=== PATIENT | male | born 1950 | race Caucasian/White ===

== ENCOUNTER 2023-07-09 13:59 | Inpatient (IN) | payer OTHER ==
[~2023-07-09 13:59] MED LIST: Iopamidol 300 61% 100 ML VIAL FS ONE
[2023-07-09 14:54] LABS: #Basophils 0.1 10x3/uL (0.0-0.2); #Eosinphils 0.3 10x3/uL (0.0-0.5); #Monocytes 0.8 10x3/uL (0.0-1.1); #Neutrophils 10.7 10x3/uL (1.5-8.4); %Basophils 0.5 % (0.0-2.0); %Eosinophils 2.4 % (0.0-6.0); %Lymphocytes 8.7 % (18.0-47.0); %Monocytes 6.1 % (0.0-10.0); %Neutrophils 81.5 % (40.0-75.0); Hematocrit 36.5 % (38.8-50.0); Hemoglobin 11.3 g/dL (13.5-17.5); Mean Corpuscular Volume 90.6 fl (81.2-95.1); Mean Platelet Volume 9.8 fl (7.4-10.4); Platelet Count 366 10x3/uL (150-450); RBC Distribution Width 15.4 % (11.5-14.5); Red Blood Cell (RBC) Count 4.03 10x6/uL (4.32-5.72); White Blood Cell (WBC) Count 13.1 10x3/uL (3.5-10.5)
[2023-07-09 15:13] LABS: ALT (SGPT) 17 U/L (8-55); AST (SGOT) 15 U/L (5-34); Albumin 3.1 g/dL (3.4-4.8); Alkaline Phosphatase 69 U/L (40-110); Anion Gap 14 mmol/L (10-20); BUN (Urea Nitrogen) 45 mg/dL (8.4-25.7); Bilirubin, Total 0.2 mg/dL (0.2-1.2); Calc. Creatinine Clearance 0 mL/min (70-130); Calcium 8.9 mg/dL (7.8-10.44); Carbon Dioxide 27 mmol/L (23-31); Chloride 104 mmol/L (98-107); Estimated GFR 86; Globulin 3.1 g/dL (2.4-3.5); Glucose 109 mg/dL (83-110); Lipase 37 U/L (8-78); Potassium 5.2 mmol/L (3.5-5.1); Protein, Total 6.2 g/dL (5.8-8.1); Sodium 140 mmol/L (136-145)
[2023-07-09 15:19] LABS: Troponin I Less than 0.010 ng/mL (< 0.028)
[2023-07-09 15:25] LABS: SARS-CoV-2 NAA Rapid Test Not Detected (NotDetected)
[2023-07-09 15:43] LABS: Bilirubin Neg (Negative); Blood, Urine 25 (Negative); Glucose, Urine (Dipstick) >=1000 mg/dL (Negative); Ketone, Urine Negative (Negative); Leukocyte 500 (Negative); Nitrite Negative (Negative); Protein, Urine (Dipstick) 30 mg/dl (Neg-Trace); Urobilinogen Normal mg/dL (Less than 2)
[2023-07-09 16:34] LABS: Clarity Slightly Cloudy (Clear)
[2023-07-09 16:38] LABS: Bacteria/HPF 3+ HPF (None Seen); CAUTI Indications for Culture Pelvic or flank pain; WBC/HPF 21-50 HPF (0-3)
[2023-07-09 16:43] LABS: Urine Culture Reflex Yes Yes
[2023-07-09] MEDS ORDERED: cefTRIAXone (ROCEPHIN) 1 GM VIAL ONE (17:02)
[2023-07-09] MEDS ORDERED: Acetaminophen 325 MG TAB PO PRN (17:39)
[2023-07-09] MEDS ORDERED: Bisacodyl 5 MG TAB PO PRN (17:39)
[2023-07-09] MEDS ORDERED: Senokot S 8.6-50 MG TAB PO PRN (17:39)
[2023-07-09] MEDS ORDERED: Ondansetron ODT 4 MG TAB PO PRN (17:39)
[2023-07-09] MEDS ORDERED: Ondansetron PF 4 MG/2 ML Vial IVP PRN (17:39)
[2023-07-09] MEDS ORDERED: Acetaminophen 650 MG Suppository PR PRN (17:39)
[2023-07-09] MEDS ORDERED: Dextrose 5% in Water 1,000 ML IV PRN (17:42)
[2023-07-09] MEDS ORDERED: Glucagon 1 MG/ML KIT IM PRN (17:42)
[2023-07-09] MEDS ORDERED: Dextrose 50% Abboject 50 ML SYRINGE SLOW IVP PRN (17:42)
[2023-07-09] MEDS ORDERED: Insulin Regular 300 UNITS/3 ML VIAL SC PRN ×2 (17:42)
[2023-07-09] MEDS ORDERED: Pantoprazole 40 MG VIAL IVP SCH (20:30)
[2023-07-09 21:52] VITALS: BMI 33.4
[2023-07-09] MEDS: Cefepime 2 GM in Sodium Chloride 0.9% 100 ML IVPB SCH (23:20)
[2023-07-09] MEDS: Atorvastatin Calcium 40 MG TAB PO SCH (23:21)
[2023-07-09] MEDS: Sodium Chloride 0.9% 1,000 ML IV SCH (23:21)
[2023-07-09] MEDS: Heparin 5,000 UNITS/ML VIAL SC SCH (23:21)
[2023-07-10] MEDS ORDERED: FLU VACC QS2023(65UP)/MF59C/PF 60 MCG/0.5 ML SYRINGE IM ONE (01:30)
[2023-07-10 04:07] LABS: Anion Gap 11 mmol/L (10-20); BUN (Urea Nitrogen) 32 mg/dL (8.4-25.7); Calc. Creatinine Clearance 115 mL/min (70-130); Calcium 8.3 mg/dL (7.8-10.44); Carbon Dioxide 22 mmol/L (23-31); Chloride 107 mmol/L (98-107); Estimated GFR 92; Glucose 97 mg/dL (83-110); Sodium 136 mmol/L (136-145)
[2023-07-10 04:13] LABS: #Basophils 0.1 10x3/uL (0.0-0.2); #Eosinphils 0.2 10x3/uL (0.0-0.5); #Neutrophils 10.5 10x3/uL (1.5-8.4); %Basophils 0.4 % (0.0-2.0); %Eosinophils 1.6 % (0.0-6.0); %Lymphocytes 11.3 % (18.0-47.0); %Monocytes 7.7 % (0.0-10.0); %Neutrophils 78.5 % (40.0-75.0); Hematocrit 32.3 % (38.8-50.0); Hemoglobin 10.4 g/dL (13.5-17.5); Mean Corpuscular HGB CONC 32.2 g/dL (32.0-36.0); Mean Corpuscular Hemoglobin 29.3 pg (27.0-33.0); Platelet Count 307 10x3/uL (150-450); RBC Distribution Width 15.5 % (11.5-14.5); Red Blood Cell (RBC) Count 3.55 10x6/uL (4.32-5.72); White Blood Cell (WBC) Count 13.3 10x3/uL (3.5-10.5)
[2023-07-10] MEDS: Cefepime 2 GM in Sodium Chloride 0.9% 100 ML IVPB SCH ×2 (08:16→21:18)
[2023-07-10] MEDS: Sodium Chloride 0.9% 1,000 ML IV SCH ×3 (08:17→17:50)
[2023-07-10] MEDS: Clopidogrel Bisulfate 75 MG TAB PO SCH (08:17)
[2023-07-10] MEDS: Aspirin 325 mg Enteric Coated Tablet PO SCH (08:17)
[2023-07-10] MEDS: Heparin 5,000 UNITS/ML VIAL SC SCH ×2 (08:17→21:18)
[2023-07-10] MEDS ORDERED: Fludrocortisone Acetate 0.1 MG TAB PO SCH (09:00)
[2023-07-10] MEDS ORDERED: Moisturizing Cream (Eucerin) 113 GM JAR TOP PRN (13:00)
[2023-07-10] MEDS: Atorvastatin Calcium 40 MG TAB PO SCH (21:18)
[2023-07-11] MEDS: Sodium Chloride 0.9% 1,000 ML IV SCH (02:41)
[2023-07-11 05:23] LABS: #Basophils 0.1 10x3/uL (0.0-0.2); #Eosinphils 0.3 10x3/uL (0.0-0.5); #Monocytes 0.7 10x3/uL (0.0-1.1); #Neutrophils 8.2 10x3/uL (1.5-8.4); %Basophils 0.6 % (0.0-2.0); %Eosinophils 2.7 % (0.0-6.0); %Lymphocytes 12.8 % (18.0-47.0); %Monocytes 6.8 % (0.0-10.0); %Neutrophils 76.4 % (40.0-75.0); Hematocrit 35.9 % (38.8-50.0); Hemoglobin 11.5 g/dL (13.5-17.5); Mean Corpuscular Hemoglobin 28.8 pg (27.0-33.0); Mean Platelet Volume 10.1 fl (7.4-10.4); Platelet Count 307 10x3/uL (150-450); RBC Distribution Width 15.3 % (11.5-14.5); Red Blood Cell (RBC) Count 3.99 10x6/uL (4.32-5.72); White Blood Cell (WBC) Count 10.7 10x3/uL (3.5-10.5)
[2023-07-11 05:30] LABS: Anion Gap 11 mmol/L (10-20); BUN (Urea Nitrogen) 26 mg/dL (8.4-25.7); Calc. Creatinine Clearance 104 mL/min (70-130); Calcium 8.5 mg/dL (7.8-10.44); Carbon Dioxide 21 mmol/L (23-31); Chloride 111 mmol/L (98-107); Estimated GFR 89; Glucose 109 mg/dL (83-110); Potassium 4.1 mmol/L (3.5-5.1); Sodium 139 mmol/L (136-145)
[2023-07-11] MEDS: Heparin 5,000 UNITS/ML VIAL SC SCH ×2 (07:47→20:48)
[2023-07-11] MEDS: Clopidogrel Bisulfate 75 MG TAB PO SCH (07:48)
[2023-07-11] MEDS: Aspirin 325 mg Enteric Coated Tablet PO SCH (07:49)
[2023-07-11] MEDS: Cefepime 2 GM in Sodium Chloride 0.9% 100 ML IVPB SCH (07:49)
[2023-07-11] MEDS ORDERED: VANCOMYCIN IVPB PRN (08:40)
[2023-07-11] MEDS: Vancomycin 1 GM in Sodium Chloride 0.9% 250 ML 250 ML IVPB SCH ×2 (09:35→20:48)
[2023-07-11] MEDS: Amlodipine 5 MG TAB PO SCH (09:35)
[2023-07-11] MEDS: Atorvastatin Calcium 40 MG TAB PO SCH (20:48)
[2023-07-12] MEDS: Vancomycin 1 GM in Sodium Chloride 0.9% 250 ML 250 ML IVPB SCH ×2 (08:55→22:38)
[2023-07-12] MEDS: Heparin 5,000 UNITS/ML VIAL SC SCH ×2 (08:55→20:46)
[2023-07-12] MEDS: Aspirin 325 mg Enteric Coated Tablet PO SCH (08:55)
[2023-07-12] MEDS: Amlodipine 5 MG TAB PO SCH (08:55)
[2023-07-12] MEDS: Clopidogrel Bisulfate 75 MG TAB PO SCH (08:55)
[2023-07-12] MEDS ORDERED: Lisinopril 20 MG TAB PO SCH (09:00)
[2023-07-12] MEDS: Atorvastatin Calcium 40 MG TAB PO SCH (20:46)
[2023-07-12] MEDS: hydrALAZINE 20 MG/ML VIAL SLOW IVP PRN (20:56)
[2023-07-12 22:06] LABS: Vancomycin, Trough 14.8 ug/mL
[2023-07-13] MEDS: Heparin 5,000 UNITS/ML VIAL SC SCH ×2 (09:00→20:44)
[2023-07-13] MEDS: Lisinopril 20 MG TAB PO SCH (10:16)
[2023-07-13] MEDS: Amlodipine 5 MG TAB PO SCH (10:17)
[2023-07-13] MEDS: Vancomycin 1 GM in Sodium Chloride 0.9% 250 ML 250 ML IVPB SCH ×2 (10:17→20:48)
[2023-07-13] MEDS: Aspirin 325 mg Enteric Coated Tablet PO SCH (10:17)
[2023-07-13] MEDS: Clopidogrel Bisulfate 75 MG TAB PO SCH (10:17)
[2023-07-13] MEDS: Polyethylene Glycol 3350 17 GM Packet PO SCH (10:18)
[2023-07-13] MEDS: Atorvastatin Calcium 40 MG TAB PO SCH (20:48)
[2023-07-14] MEDS: Polyethylene Glycol 3350 17 GM Packet PO SCH (09:40)
[2023-07-14] MEDS: Amlodipine 5 MG TAB PO SCH (09:40)
[2023-07-14] MEDS: Vancomycin 1 GM in Sodium Chloride 0.9% 250 ML 250 ML IVPB SCH ×2 (09:40→20:51)
[2023-07-14] MEDS: Aspirin 325 mg Enteric Coated Tablet PO SCH (09:41)
[2023-07-14] MEDS: Heparin 5,000 UNITS/ML VIAL SC SCH ×2 (09:41→20:47)
[2023-07-14] MEDS: Lisinopril 20 MG TAB PO SCH (09:41)
[2023-07-14] MEDS: Clopidogrel Bisulfate 75 MG TAB PO SCH (09:41)
[2023-07-14] MEDS: Docusate 100 MG CAP PO PRN (16:17)
[2023-07-14] MEDS: hydrALAZINE 20 MG/ML VIAL SLOW IVP PRN (16:17)
[2023-07-14 20:27] LABS: Vancomycin, Trough 19.9 ug/mL
[2023-07-14] MEDS: Atorvastatin Calcium 40 MG TAB PO SCH (20:51)
[2023-07-15 04:30] LABS: #Basophils 0.1 10x3/uL (0.0-0.2); #Eosinphils 0.4 10x3/uL (0.0-0.5); #Monocytes 0.7 10x3/uL (0.0-1.1); %Basophils 0.7 % (0.0-2.0); %Eosinophils 3.8 % (0.0-6.0); %Monocytes 7.5 % (0.0-10.0); %Neutrophils 73.5 % (40.0-75.0); Hematocrit 34.1 % (38.8-50.0); Mean Corpuscular HGB CONC 32.3 g/dL (32.0-36.0); Mean Corpuscular Hemoglobin 28.4 pg (27.0-33.0); Mean Corpuscular Volume 88.1 fl (81.2-95.1); Mean Platelet Volume 9.6 fl (7.4-10.4); Platelet Count 288 10x3/uL (150-450); RBC Distribution Width 15.4 % (11.5-14.5); Red Blood Cell (RBC) Count 3.87 10x6/uL (4.32-5.72); White Blood Cell (WBC) Count 9.6 10x3/uL (3.5-10.5)
[2023-07-15 04:33] LABS: Anion Gap 12 mmol/L (10-20); BUN (Urea Nitrogen) 18 mg/dL (8.4-25.7); Calc. Creatinine Clearance 119 mL/min (70-130); Calcium 8.8 mg/dL (7.8-10.44); Carbon Dioxide 22 mmol/L (23-31); Chloride 108 mmol/L (98-107); Estimated GFR 93; Glucose 123 mg/dL (83-110); Potassium 3.6 mmol/L (3.5-5.1); Sodium 138 mmol/L (136-145)
[2023-07-15] MEDS: Polyethylene Glycol 3350 17 GM Packet PO SCH (08:51)
[2023-07-15] MEDS: Lisinopril 20 MG TAB PO SCH (08:52)
[2023-07-15] MEDS: Aspirin 325 mg Enteric Coated Tablet PO SCH (08:52)
[2023-07-15] MEDS: Clopidogrel Bisulfate 75 MG TAB PO SCH (08:52)
[2023-07-15] MEDS: Amlodipine 10 MG TAB PO SCH (08:52)
[2023-07-15] MEDS: Heparin 5,000 UNITS/ML VIAL SC SCH (08:52)
[2023-07-15] MEDS: Vancomycin 1 GM in Sodium Chloride 0.9% 250 ML 250 ML IVPB SCH (15:32)
[2023-07-15] MEDS: Atorvastatin Calcium 40 MG TAB PO SCH (22:14)
[2023-07-15] MEDS: Docusate 100 MG CAP PO PRN (22:15)
[2023-07-16] MEDS: Aspirin 325 mg Enteric Coated Tablet PO SCH (09:43)
[2023-07-16] MEDS: Lisinopril 20 MG TAB PO SCH (09:43)
[2023-07-16] MEDS: Clopidogrel Bisulfate 75 MG TAB PO SCH (09:43)
[2023-07-16] MEDS: Amlodipine 10 MG TAB PO SCH (09:44)
[2023-07-16] MEDS: Vancomycin 1 GM in Sodium Chloride 0.9% 250 ML 250 ML IVPB SCH (09:44)
[2023-07-16] MEDS: Polyethylene Glycol 3350 17 GM Packet PO PRN (09:45)
[2023-07-16] MEDS: Atorvastatin Calcium 40 MG TAB PO SCH (21:19)
[2023-07-16] MEDS: Docusate 100 MG CAP PO PRN (21:21)
[2023-07-17 02:42] LABS: Vancomycin, Trough 16.4 ug/mL
[2023-07-17] MEDS: Vancomycin 1 GM in Sodium Chloride 0.9% 250 ML 250 ML IVPB SCH ×2 (03:12→22:55)
[2023-07-17] MEDS: Clopidogrel Bisulfate 75 MG TAB PO SCH (08:15)
[2023-07-17] MEDS: Amlodipine 10 MG TAB PO SCH (08:15)
[2023-07-17] MEDS: Lisinopril 20 MG TAB PO SCH (08:15)
[2023-07-17] MEDS: Aspirin 325 mg Enteric Coated Tablet PO SCH (08:15)
[2023-07-17] MEDS: Atorvastatin Calcium 40 MG TAB PO SCH (22:55)
[2023-07-18] MEDS ORDERED: Cyclobenzaprine 10 MG TAB PO SCH (02:30)
[2023-07-18] MEDS ORDERED: Potassium Chloride 20 MEQ TAB PO SCH (02:30)
[2023-07-18] MEDS ORDERED: Magnesium Oxide 400 MG TAB PO SCH (02:30)
[2023-07-18] MEDS: Aspirin 325 mg Enteric Coated Tablet PO SCH (08:35)
[2023-07-18] MEDS: Amlodipine 10 MG TAB PO SCH (08:35)
[2023-07-18] MEDS: Lisinopril 20 MG TAB PO SCH (08:36)
[2023-07-18] MEDS: Clopidogrel Bisulfate 75 MG TAB PO SCH (08:36)
[2023-07-18] MEDS: Vancomycin 1 GM in Sodium Chloride 0.9% 250 ML 250 ML IVPB SCH (15:31)
[2023-07-18] MEDS: Atorvastatin Calcium 40 MG TAB PO SCH (22:13)
[2023-07-19 03:46] LABS: Anion Gap 13 mmol/L (10-20); BUN (Urea Nitrogen) 22 mg/dL (8.4-25.7); Calc. Creatinine Clearance 122 mL/min (70-130); Calcium 8.7 mg/dL (7.8-10.44); Carbon Dioxide 23 mmol/L (23-31); Chloride 107 mmol/L (98-107); Estimated GFR 94; Glucose 115 mg/dL (83-110); Potassium 3.7 mmol/L (3.5-5.1); Sodium 139 mmol/L (136-145)
[2023-07-19 03:59] LABS: #Basophils 0.1 10x3/uL (0.0-0.2); #Eosinphils 0.3 10x3/uL (0.0-0.5); #Monocytes 0.8 10x3/uL (0.0-1.1); #Neutrophils 6.8 10x3/uL (1.5-8.4); %Basophils 0.6 % (0.0-2.0); %Eosinophils 3.3 % (0.0-6.0); %Lymphocytes 17.3 % (18.0-47.0); %Monocytes 8.2 % (0.0-10.0); %Neutrophils 69.8 % (40.0-75.0); Hematocrit 35.3 % (38.8-50.0); Hemoglobin 11.2 g/dL (13.5-17.5); Mean Corpuscular HGB CONC 31.7 g/dL (32.0-36.0); Mean Corpuscular Hemoglobin 28.7 pg (27.0-33.0); Mean Corpuscular Volume 90.5 fl (81.2-95.1); Mean Platelet Volume 10.1 fl (7.4-10.4); Platelet Count 278 10x3/uL (150-450); RBC Distribution Width 15.5 % (11.5-14.5); White Blood Cell (WBC) Count 9.7 10x3/uL (3.5-10.5)
[2023-07-19] MEDS: Vancomycin 1 GM in Sodium Chloride 0.9% 250 ML 250 ML IVPB SCH (09:47)
[2023-07-19] MEDS: Clopidogrel Bisulfate 75 MG TAB PO SCH (09:48)
[2023-07-19] MEDS: Aspirin 325 mg Enteric Coated Tablet PO SCH (09:48)
[2023-07-19] MEDS: Lisinopril 20 MG TAB PO SCH (09:48)
[2023-07-19] MEDS: Amlodipine 10 MG TAB PO SCH (09:48)
[2023-07-19] MEDS: Atorvastatin Calcium 40 MG TAB PO SCH (21:20)
[2023-07-20] MEDS: Vancomycin 1 GM in Sodium Chloride 0.9% 250 ML 250 ML IVPB SCH ×2 (03:36→22:19)
[2023-07-20 04:31] LABS: Anion Gap 14 mmol/L (10-20); BUN (Urea Nitrogen) 21 mg/dL (8.4-25.7); Calc. Creatinine Clearance 115 mL/min (70-130); Calcium 9.1 mg/dL (7.8-10.44); Carbon Dioxide 24 mmol/L (23-31); Chloride 106 mmol/L (98-107); Estimated GFR 92; Glucose 118 mg/dL (83-110); Potassium 3.7 mmol/L (3.5-5.1); Sodium 140 mmol/L (136-145)
[2023-07-20 04:53] LABS: #Basophils 0.1 10x3/uL (0.0-0.2); #Eosinphils 0.4 10x3/uL (0.0-0.5); #Monocytes 0.8 10x3/uL (0.0-1.1); %Basophils 0.6 % (0.0-2.0); %Lymphocytes 15.6 % (18.0-47.0); %Monocytes 8.3 % (0.0-10.0); %Neutrophils 70.9 % (40.0-75.0); Hematocrit 36.9 % (38.8-50.0); Hemoglobin 11.8 g/dL (13.5-17.5); Mean Corpuscular Hemoglobin 28.7 pg (27.0-33.0); Mean Corpuscular Volume 89.8 fl (81.2-95.1); Platelet Count 265 10x3/uL (150-450); RBC Distribution Width 15.2 % (11.5-14.5); Red Blood Cell (RBC) Count 4.11 10x6/uL (4.32-5.72); White Blood Cell (WBC) Count 9.9 10x3/uL (3.5-10.5)
[2023-07-20] MEDS: Amlodipine 10 MG TAB PO SCH (11:14)
[2023-07-20] MEDS: Clopidogrel Bisulfate 75 MG TAB PO SCH (11:14)
[2023-07-20] MEDS: Lisinopril 20 MG TAB PO SCH (11:15)
[2023-07-20] MEDS: Aspirin 325 mg Enteric Coated Tablet PO SCH (11:15)
[2023-07-20 14:17] LABS: Vancomycin, Trough 21.3 ug/mL
[2023-07-20] MEDS: Atorvastatin Calcium 40 MG TAB PO SCH (22:20)
[2023-07-20] MEDS: Polyethylene Glycol 3350 17 GM Packet PO PRN (22:22)
[2023-07-21 03:56] LABS: #Basophils 0.1 10x3/uL (0.0-0.2); #Eosinphils 0.4 10x3/uL (0.0-0.5); #Monocytes 0.8 10x3/uL (0.0-1.1); %Basophils 0.8 % (0.0-2.0); %Eosinophils 3.6 % (0.0-6.0); %Lymphocytes 18.3 % (18.0-47.0); %Monocytes 7.7 % (0.0-10.0); Hemoglobin 11.3 g/dL (13.5-17.5); Mean Corpuscular HGB CONC 31.4 g/dL (32.0-36.0); Mean Corpuscular Hemoglobin 27.9 pg (27.0-33.0); Mean Corpuscular Volume 88.9 fl (81.2-95.1); Mean Platelet Volume 9.5 fl (7.4-10.4); Platelet Count 268 10x3/uL (150-450); RBC Distribution Width 15.5 % (11.5-14.5); Red Blood Cell (RBC) Count 4.05 10x6/uL (4.32-5.72); White Blood Cell (WBC) Count 10.2 10x3/uL (3.5-10.5)
[2023-07-21 04:09] LABS: Anion Gap 13 mmol/L (10-20); BUN (Urea Nitrogen) 19 mg/dL (8.4-25.7); Calc. Creatinine Clearance 125 mL/min (70-130); Calcium 9.2 mg/dL (7.8-10.44); Carbon Dioxide 23 mmol/L (23-31); Chloride 107 mmol/L (98-107); Estimated GFR 94; Glucose 111 mg/dL (83-110); Potassium 3.6 mmol/L (3.5-5.1); Sodium 139 mmol/L (136-145)
[2023-07-21] MEDS: Amlodipine 10 MG TAB PO SCH (09:19)
[2023-07-21] MEDS: Aspirin 325 mg Enteric Coated Tablet PO SCH (09:19)
[2023-07-21] MEDS: Lisinopril 20 MG TAB PO SCH (09:19)
[2023-07-21] MEDS: Clopidogrel Bisulfate 75 MG TAB PO SCH (09:19)
[2023-07-21] MEDS: Docusate 100 MG CAP PO PRN (11:33)
[2023-07-21] MEDS: Polyethylene Glycol 3350 17 GM Packet PO PRN (11:33)
[2023-07-21] MEDS: Atorvastatin Calcium 40 MG TAB PO SCH (20:58)
[2023-07-22 03:43] LABS: #Basophils 0.1 10x3/uL (0.0-0.2); #Eosinphils 0.4 10x3/uL (0.0-0.5); #Monocytes 0.7 10x3/uL (0.0-1.1); #Neutrophils 7.1 10x3/uL (1.5-8.4); %Basophils 0.8 % (0.0-2.0); %Eosinophils 3.7 % (0.0-6.0); %Lymphocytes 17.1 % (18.0-47.0); %Monocytes 6.7 % (0.0-10.0); %Neutrophils 71.2 % (40.0-75.0); Hematocrit 35.7 % (38.8-50.0); Hemoglobin 11.4 g/dL (13.5-17.5); Mean Corpuscular HGB CONC 31.9 g/dL (32.0-36.0); Mean Corpuscular Hemoglobin 28.2 pg (27.0-33.0); Mean Corpuscular Volume 88.4 fl (81.2-95.1); Mean Platelet Volume 9.8 fl (7.4-10.4); Platelet Count 266 10x3/uL (150-450); RBC Distribution Width 15.2 % (11.5-14.5); Red Blood Cell (RBC) Count 4.04 10x6/uL (4.32-5.72); White Blood Cell (WBC) Count 9.9 10x3/uL (3.5-10.5)
[2023-07-22 04:00] LABS: Anion Gap 13 mmol/L (10-20); BUN (Urea Nitrogen) 18 mg/dL (8.4-25.7); Calc. Creatinine Clearance 125 mL/min (70-130); Calcium 8.9 mg/dL (7.8-10.44); Carbon Dioxide 23 mmol/L (23-31); Chloride 106 mmol/L (98-107); Estimated GFR 94; Glucose 101 mg/dL (83-110); Potassium 3.8 mmol/L (3.5-5.1); Sodium 138 mmol/L (136-145)
[2023-07-22] MEDS: Lisinopril 20 MG TAB PO SCH (10:55)
[2023-07-22] MEDS: Amlodipine 10 MG TAB PO SCH (10:56)
[2023-07-22] MEDS: Clopidogrel Bisulfate 75 MG TAB PO SCH (10:56)
[2023-07-22] MEDS: Aspirin 325 mg Enteric Coated Tablet PO SCH (10:56)
[2023-07-22] MEDS: Polyethylene Glycol 3350 17 GM Packet PO PRN (11:04)
[2023-07-22] MEDS: Docusate 100 MG CAP PO PRN (11:04)
[2023-07-22 12:36] VITALS: TEMP 97.9
[2023-07-22 14:44] VITALS: BP 109/58
== END 2023-07-22 16:00 | DRG 872 ==
LOC: CSHERS 13:59 → CSHTELE 17:21
PROVIDERS: ADMIT Internal Medicine; ATTEND Internal Medicine
DX: A41.02 Sepsis due to Methicillin resistant Staphylococcus aureus (principal); N10 Acute pyelonephritis; I69.351 Hemiplegia and hemiparesis following cerebral infarction affecting right dominant side; R53.1 Weakness; I44.0 Atrioventricular block, first degree; L89.151 Pressure ulcer of sacral region, stage 1; E11.9 Type 2 diabetes mellitus without complications; I10 Essential (primary) hypertension; E78.5 Hyperlipidemia, unspecified; Z79.82 Long term (current) use of aspirin; Z79.02 Long term (current) use of antithrombotics/antiplatelets; Z74.01 Bed confinement status; Z11.52 Encounter for screening for COVID-19
CPT/HCPCS: 36415; 36416; 71045; 74177; 80048; 80053; 80202; 81001; 82565; 83605; 83690; 84484; 84520; 85025; 87040; 87077; 87086; 87186; 90471; 90694; 93005; 96372; 97139; C9113; G0008; J0360; J0692; J0696; J1644; J1650; J1815; J3370; J3490; J7050; Q9967